=== PATIENT | female | born 2000 | race Two or more races ===

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

== ENCOUNTER 2022-05-03 19:19 | Emergency (ER) | payer OTHER, SELFPAY ==
[2022-05-03 19:35] VITALS: BP 118/76; PULSE 102; RESP 18; TEMP 36.6; O2SAT 100; BMI 19.8
--- NOTE | 2022-05-03 19:38 | ED.FEMALEGU ---
HPI - Female Genitourinary General Chief complaint: Urogenital-Female Stated complaint: UTI Time Seen by Provider: 05/03/22 20:12 Source: patient Mode of arrival: ambulatory Limitations: no limitations History of Present Illness HPI Narrative: 22 yo female with history of multiple UTIs in the past presents the ER for evaluation of UTI symptoms that started this morning. She reports burning when she urinates and increased frequency and urgency. She denies any hematuria, flank pain, abdominal pain, nausea, vomiting, fever, chills. She states she has had UTIs in the past and this feels similar. She denies any vaginal discharge. She denies any concern for STIs. No pelvic pain. She is not sure if she is , she is sexually active. MD elicited complaint: UTI Pertinent past history: recurrent UTIs Onset (ago): hour(s) Location of symptoms: suprapubic and urethra Severity: moderate Female Urogenital Radiation: Non-Radiating Quality of pain: burning Consistency: intermittent Vaginal discharge: none Vaginal bleeding: none Urinary symptoms: Dysuria, Urgency and Frequency Relieving factors: none Associated symptoms: denies other symptoms Treatment prior to arrival: none Sexual activity: Yes Possible : unsure if Related Data Previous Rx's Medication Instructions Recorded nitrofurantoin 100 mg PO BID #20 caps 01/29/21 monohydrate/macrocrystals 100 mg capsule (Macrobid) phenazopyridine 200 mg tablet 200 mg PO TID 2 days #6 tabs 01/29/21 (Pyridium) cefuroxime axetil 250 mg tablet 250 mg PO BID 7 days #14 tabs 03/15/21 nitrofurantoin 100 mg PO Q12H 5 days #10 caps 05/03/22 monohydrate/macrocrystals 100 mg capsule (Macrobid) phenazopyridine 100 mg tablet 100 mg PO TID PRN pain 6 doses #6 05/03/22 (Pyridium) tabs Allergies Allergy/AdvReac Type Severity Reaction Status Date / Time No Known Allergies Allergy Verified 10/09/21 22:02 Review of Systems Review of Systems: Constitutional: No Fever, No Chills Cardiovascular: No Chest Pain, No SOB Respiratory: No Cough, No Sputum Gastrointestinal: No Nausea, No Vomiting, No Diarrhea, No abdominal Pain Genitourinary: + Dysuria, + Urinary Frequency, No Hematuria Musculoskeletal: No joint pain, No Myalgias Skin: No Skin Lesions, No rash Neuro: No Weakness Heme/Lymph: No Bruising, No Lymphadenopathy Endocrine: No Polyuria, No Polydipsia PMFSH Past Medical History Surgical History Hx of tonsillectomy Social History Social History Alcohol intake: never Advance Directives: No Advance Directives Information Provided: No Physical Exam Vital Signs: Vital Signs: Last Vital Signs Temp 97.9 F 05/03/22 19:35 Pulse 102 H 05/03/22 19:35 Resp 18 05/03/22 19:35 BP 118/76 05/03/22 19:35 Pulse Ox 100 05/03/22 19:35 O2 Del Method 05/03/22 19:35 BMI result Body Mass Index 19.8 Appearance: Alert. Oriented X3. No acute distress. HEENT: normal inspecion Neck: Normal inspection. Respiratory: No respiratory distress. Abdomen: Soft and nontender. +BS x4 Skin: Skin warm and dry. Normal skin color. Normal skin turgor. No rashes. Extremities:normal inspection x4 Neuro: Oriented X 3. Grossly normal, nonfocal steady gait Course Course Course Narrative: 19:38 - 22 yo female presenting with UTI. symptoms started this morning. No fever, chills, N/V/D or abdominal pain. No vaginal discharge. No concern for STI. Will check UA and Upreg. Reevaluation(s) Reevaluation #1: Urinalysis positive for infection. Prior UA and urine cultures were reviewed - history of pansensitive E coli. Has tolerated Macrobid well in the past. Will prescribe Macrobid and Pyridium. Patient counseled on diagnosis and management. Encourage follow-up with her PCP. Stable for discharge home. Medical Decision Making Lab Data Labs: Lab Results 05/03/22 05/03/22 Range/Units 19:45 19:45 Urine Color Yellow Urine Appearance Clear Urine pH 6.5 (5.0-9.0) Ur Specific [place] <= 1.005 (1.005-1.025) Urine Protein Negative (Neg-Trace) mg/dL Urine Glucose (UA) Negative (Negative) mg/dL Urine Ketones Negative (Negative) mg/dL Urine Blood Trace H (Negative) Urine Nitrite Negative (Negative) Ur Leukocyte Esterase Moderate (2+) H (Negative) Urine Test NEGATIVE (NEGATIVE) Discharge Plan Discharge Clinical Impression: Urinary tract infection Patient Disposition: Home, Self-Care Instructions: Urinary Tract Infection in Women (ED) Additional Instructions: Your urine test was positive for infection. It was negative for . Your given 1st dose of antibiotics tonight. Take the prescribed antibiotics 1st thing tomorrow morning. Take the entire course, do not miss any doses. Increase your oral hydration, make sure you are drinking plenty of water. Follow-up with your doctor as needed Prescriptions: New nitrofurantoin monohyd/m-cryst [Macrobid] 100 mg capsule 100 mg PO Q12H 5 Days Qty: 10 0RF Rx Instructions: must administer with a meal/food phenazopyridine [Pyridium] 100 mg tablet 100 mg PO TID PRN (Reason: pain) Qty: 6 0RF No Action nitrofurantoin monohyd/m-cryst [Macrobid] 100 mg capsule 100 mg PO BID Qty: 20 0RF Rx Instructions: must administer with a meal/food phenazopyridine [Pyridium] 200 mg tablet 200 mg PO TID 2 Days Qty: 6 0RF cefuroxime axetil 250 mg tablet 250 mg PO BID 7 Days Qty: 14 0RF
[2022-05-03 19:53] LABS: Appearance Urine Clear; Color Urine Yellow; Glucose Urine UA Negative (Negative); Leukocyte Esterase Urine Moderate (2+) (Negative); Nitrite Urine Negative (Negative); PH 6.5 (5.0-9.0); Specific Gravity - Urine <= 1.005 (1.005-1.025); UMIC TRIGGER UACC YES; Urine Blood Trace (Negative); Urine Ketones Negative (Negative); Urine Protein Negative (Neg-Trace)
[2022-05-03 19:56] LABS: UPreg QC Valid YES; Urine Pregnancy NEGATIVE (NEGATIVE)
[2022-05-03] MEDS: Nitrofurantoin Monohyd/M-Cryst 100 MG CAPSULE PO (20:49)
[2022-05-03] MEDS: Phenazopyridine HCL 100 MG TABLET PO (20:49)
[2022-05-03 21:27] LABS: Bacteria Urine None Seen (None Seen); Hyaline Casts Urine 0-2 /LPF (0-2); RBC Urine 0-2 /HPF (0-2); Squamous Epithelial Cell Urine 0-2 /HPF (0-2); UACC Culture Trigger YES; WBC Urine 21-50 /HPF (0-5)
== END 2022-05-03 20:53 | disposition home or self-care (01) ==
PROVIDERS: Physician Assistant; Emergency Provider Emergency Medicine
DX: N39.0 Urinary tract infection, site not specified (principal); R35.0 Frequency of micturition; R30.0 Dysuria; Z79.899 Other long term (current) drug therapy
CPT/HCPCS: 81001; 81003; 81025; 87086; 87147; 99283

== ENCOUNTER 2023-04-16 05:30 | Emergency (ER) | payer OTHER, SELFPAY ==
[2023-04-16 05:33] VITALS: BP 107/65; PULSE 70; RESP 16; TEMP 36.6; O2SAT 100; BMI 19.5
[2023-04-16 05:54] LABS: UPreg QC Valid YES; Urine Pregnancy NEGATIVE (NEGATIVE)
[2023-04-16 05:55] LABS: Appearance Urine Clear; Color Urine Yellow; Glucose Urine UA Negative (Negative); Leukocyte Esterase Urine Moderate (2+) (Negative); Nitrite Urine Negative (Negative); PH 6.5 (5.0-9.0); Specific Gravity - Urine <= 1.005 (1.005-1.025); UMIC TRIGGER UACC YES; Urine Blood Trace (Negative); Urine Ketones Negative (Negative); Urine Protein Negative (Neg-Trace)
[2023-04-16 06:03] LABS: Bacteria Urine None Seen (None Seen); Hyaline Casts Urine 0-2 /LPF (0-2); RBC Urine 0-2 /HPF (0-2); Squamous Epithelial Cell Urine 0-2 /HPF (0-2); UACC Culture Trigger YES
--- NOTE | 2023-04-16 06:03 | ED_ITS ---
HPI - Female Genitourinary General Chief complaint: Urogenital-Female Stated complaint: UTI Time Seen by Provider: 04/16/23 05:48 Source: patient Mode of arrival: ambulatory History of Present Illness HPI Narrative: 23-year-old female with history of frequent UTIs presents with having dysuria and frequency since yesterday but really picked up overnight and now she is feeling considerable discomfort but denies any vaginal discharge. Related Data Previous Rx's Medication Instructions Recorded nitrofurantoin 100 mg PO BID #20 caps 01/29/21 monohydrate/macrocrystals 100 mg capsule (Macrobid) phenazopyridine 200 mg tablet 200 mg PO TID 2 days #6 tabs 01/29/21 (Pyridium) cefuroxime axetil 250 mg tablet 250 mg PO BID 7 days #14 tabs 03/15/21 nitrofurantoin 100 mg PO Q12H 5 days #10 caps 05/03/22 monohydrate/macrocrystals 100 mg capsule (Macrobid) phenazopyridine 100 mg tablet 100 mg PO TID PRN pain 6 doses #6 05/03/22 (Pyridium) tabs nitrofurantoin 100 mg PO Q12H 5 days #10 caps 04/16/23 monohydrate/macrocrystals 100 mg capsule (Macrobid) phenazopyridine 200 mg tablet 200 mg PO TID PRN pain 6 doses #6 04/16/23 (Pyridium) tabs Allergies Allergy/AdvReac Type Severity Reaction Status Date / Time No Known Allergies Allergy Verified 04/16/23 05:35 Review of Systems Review of Systems: Pertinent positives and negatives as stated in [facility] Past Medical History Source: nursing notes reviewed Surgical History Hx of tonsillectomy Social History Social History Alcohol intake: never Advance Directives: No Advance Directives Information Provided: No Physical Exam Vital Signs: Vital Signs: Last Vital Signs Temp 97.8 F 04/16/23 05:33 Pulse 70 04/16/23 05:33 Resp 16 04/16/23 05:33 BP 107/65 04/16/23 05:33 Pulse Ox 100 04/16/23 05:33 O2 Del Method Room Air 04/16/23 05:33 BMI result Body Mass Index 19.5 VITAL SIGNS: Reviewed. GENERAL: Well developed, well nourished, in no acute distress. HEAD: Normocephalic/atraumatic EYES: PERRLA, EOMI LUNGS: Normal breath sounds. No adventitious sounds or accessory muscle use. SpO2<100> CARDIOVASCULAR: Regular rate and rhythm without noted murmurs ABDOMEN: Soft, non-tender, non-distended with bowel sounds. MUSCULOSKELETAL: No tenderness, deformities, or effusions noted on gross inspection. EXTREMITIES: No cyanosis, clubbing or edema. SKIN: Inspection of the skin reveals no rashes NEUROLOGIC: Alert and oriented x 4. Strength and sensation to light touch were grossly intact x 4. Medical Decision Making Medical Decision Making MDM Narrative: 23-year-old female with history and clinical presentation most consistent with cystitis/urinary tract infection, will rule out and no clinical or historical information to suggest STI. On review of results, urine is negative and urinalysis significant for urinary tract infection. Patient received Pyridium and Macrobid as well as Tylenol here in the emergency room. Differential Diagnosis Differential Diagnoses: The differential diagnosis associated with the presentation includes Please see the discussion above Admission/Observation Consideration of admission/observation: Escalation of care including admission/observation considered Please see the discussion above Lab Data MDM Lab Attestation statement: I reviewed the patient's lab results. Please see the discussion above Labs: Lab Results 04/16/23 04/16/23 Range/Units 05:46 05:47 Urine Color Yellow Urine Appearance Clear Urine pH 6.5 (5.0-9.0) Ur Specific [place] <= 1.005 (1.005-1.025) Urine Protein Negative (Neg-Trace) mg/dL Urine Glucose (UA) Negative (Negative) mg/dL Urine Ketones Negative (Negative) mg/dL Urine Blood Trace H (Negative) Urine Nitrite Negative (Negative) Ur Leukocyte Esterase Moderate (2+) H (Negative) Urine RBC 0-2 (0-2) /HPF Urine WBC 11-20 H (0-5) /HPF Ur Squamous Epith Cells 0-2 (0-2) /HPF Urine Bacteria None Seen (None Seen) Hyaline Casts 0-2 (0-2) /LPF Urine Test NEGATIVE (NEGATIVE) External Record Review External record reviewed: Outpatient record and Prior outpatient labs Discharge Plan Discharge Clinical Impression: Urinary tract infection Patient Disposition: Home, Self-Care Instructions: Urinary Tract Infection in Women (ED) Additional Instructions: 1. Please complete the entire course of antibiotics as prescribed. Return to the ER for any worsening symptoms. Prescriptions: New nitrofurantoin monohyd/m-cryst [Macrobid] 100 mg capsule 100 mg PO Q12H 5 Days Qty: 10 0RF Rx Instructions: must administer with a meal/food phenazopyridine [Pyridium] 200 mg tablet 200 mg PO TID PRN (Reason: pain) Qty: 6 0RF No Action nitrofurantoin monohyd/m-cryst [Macrobid] 100 mg capsule 100 mg PO BID Qty: 20 0RF Rx Instructions: must administer with a meal/food phenazopyridine [Pyridium] 200 mg tablet 200 mg PO TID 2 Days Qty: 6 0RF nitrofurantoin monohyd/m-cryst [Macrobid] 100 mg capsule 100 mg PO Q12H 5 Days Qty: 10 0RF Rx Instructions: must administer with a meal/food phenazopyridine [Pyridium] 100 mg tablet 100 mg PO TID PRN (Reason: pain) Qty: 6 0RF cefuroxime axetil 250 mg tablet 250 mg PO BID 7 Days Qty: 14 0RF
[2023-04-16] MEDS: Phenazopyridine HCL 200 MG TABLET PO (06:09)
[2023-04-16] MEDS: Acetaminophen 325 MG TABLET 975 MG PO (06:09)
[2023-04-16] MEDS: Nitrofurantoin Monohyd/M-Cryst 100 MG CAPSULE PO (06:09)
== END 2023-04-16 06:11 | disposition home or self-care (01) ==
PROVIDERS: Emergency Provider Student in an Organized Health Care Education/Training Program
DX: N39.0 Urinary tract infection, site not specified (principal)
CPT/HCPCS: 81001; 81025; 87086; 99283

== ENCOUNTER 2024-02-26 04:35 | Emergency (ER) | payer SELFPAY ==
[2024-02-26 04:36] VITALS: BP 123/76; PULSE 69; RESP 16; TEMP 36.6; O2SAT 100; BMI 20.9
[2024-02-26 04:53] LABS: Appearance Urine Clear; Color Urine Yellow; Glucose Urine UA Negative (Negative); Leukocyte Esterase Urine Moderate (2+) (Negative); Nitrite Urine Negative (Negative); UMIC TRIGGER UACC YES; Urine Blood Trace (Negative); Urine Ketones Negative (Negative); Urine Protein Negative (Neg-Trace)
[2024-02-26 04:58] LABS: Bacteria Urine None Seen (None Seen); Hyaline Casts Urine 0-2 /LPF (0-2); RBC Urine 0-2 /HPF (0-2); Squamous Epithelial Cell Urine 0-2 /HPF (0-2); UACC Culture Trigger YES; WBC Urine >50 /HPF (0-5)
[2024-02-26 06:16] VITALS: BP 108/66; PULSE 67; RESP 16; TEMP 36.7; O2SAT 100
[2024-02-26 06:45] VITALS: BP 108/66; PULSE 67; RESP 16; TEMP 36.7; O2SAT 100
--- NOTE | 2024-02-26 06:50 | ED.FEMALEGU ---
HPI - Female Genitourinary General Chief complaint: Urogenital-Female Stated complaint: UTI? Time Seen by Provider: 02/26/24 06:31 Source: patient Mode of arrival: ambulatory Limitations: no limitations History of Present Illness ED Provider: Liudmila Gaston PA-C HPI Narrative: 24-year-old female with history recurrent UTIs presents to the ER for evaluation of painful urination and urgency and frequency that started yesterday. Patient reports the symptoms got acutely worse overnight prompting ER evaluation this morning. She reports having multiple UTIs in the past and this feels similar. She denies any vaginal bleeding or discharge. Her last menstrual period was 5 days ago. She denies any blood in her urine, back pain, abdominal pain, nausea, vomiting, diarrhea. No fever or chills. MD elicited complaint: dysuria and UTI Pertinent past history: recurrent UTIs Onset (ago): day(s) Location of symptoms: suprapubic and urethra Severity: moderate Consistency: intermittent Vaginal discharge: none Vaginal bleeding: none Urinary symptoms: Dysuria, Urgency and Frequency Exacerbating factors: urination Relieving factors: none Associated symptoms: denies other symptoms Treatment prior to arrival: none Patient : No Date of Last Menstrual Period: 02/22/24 Related Data Previous Rx's ?Medication ?Instructions ?Recorded nitrofurantoin 100 mg PO BID #20 caps 01/29/21 monohydrate/macrocrystals 100 mg capsule (Macrobid) phenazopyridine 200 mg tablet 200 mg PO TID 2 days #6 tabs 01/29/21 (Pyridium) cefuroxime axetil 250 mg tablet 250 mg PO BID 7 days #14 tabs 03/15/21 nitrofurantoin 100 mg PO Q12H 5 days #10 caps 05/03/22 monohydrate/macrocrystals 100 mg capsule (Macrobid) phenazopyridine 100 mg tablet 100 mg PO TID PRN pain 6 doses #6 05/03/22 (Pyridium) tabs nitrofurantoin 100 mg PO Q12H 5 days #10 caps 04/16/23 monohydrate/macrocrystals 100 mg capsule (Macrobid) phenazopyridine 200 mg tablet 200 mg PO TID PRN pain 6 doses #6 04/16/23 (Pyridium) tabs nitrofurantoin 100 mg PO Q12H 5 days #10 caps 10/22/24 monohydrate/macrocrystals 100 mg capsule (Macrobid) Allergies Allergy/AdvReac Type Severity Reaction Status Date / Time No Known Allergies Allergy Verified 02/26/24 04:38 Review of Systems Review of Systems: Yes all other systems are reviewed and are negative [facility] Past Medical History Surgical History Hx of tonsillectomy Date of Last Menstrual Period: 02/22/24 Social History Social History Alcohol intake: never Advance Directives: No Advance Directives Information Provided: No Do you have a plan to hurt others: No Plan Physical Exam Vital Signs: Vital Signs: Last Vital Signs Temp 98.0 F 02/26/24 06:45 Pulse 67 02/26/24 06:45 Resp 16 02/26/24 06:45 BP 108/66 02/26/24 06:45 Pulse Ox 100 02/26/24 06:45 O2 Del Method Room Air 02/26/24 06:45 BMI result Body Mass Index 20.9 Appearance: Alert. Oriented X3. No acute distress. Head: normocephalic, atraumatic. Eyes: Pupils equal, round and reactive to light. ENT: Pharynx normal. No tonsillar swelling or exudate. Neck: Normal inspection. Neck supple. CVS: Normal heart rate and rhythm. Pulses normal. Respiratory: No respiratory distress. Breath sounds normal. Abdomen: Soft and nontender. +BS x4. pelvic deferred Skin: Skin warm and dry. Normal skin color. Normal skin turgor. No rashes. Extremities: No lower extremity edema. No joint swelling. Neuro/psych: Oriented X 3. Grossly normal, nonfocal. CN II-XII intact. Normal speech and cognition. Medical Decision Making Medical Decision Making MDM Narrative: 24 yo female with history of UTIs presents to the ER for evaluation of dysuria, urgency and frequency that started yesterday. Feels similar to a prior UTIs. Vital signs are stable. No systemic signs of infection. Her urinalysis today is positive for infection, negative for . Will treat with Macrobid for simple UTI. Stable for discharge home Differential Diagnosis Differential Diagnoses: The differential diagnosis associated with the presentation includes UTI, pyelonephritis, vaginitis, STI, gastroenteritis Lab Data MDM Lab Attestation statement: I reviewed the patient's lab results. Positive urinalysis Labs: Lab Results 02/26/24 Range/Units 04:45 Urine Color Yellow Urine Appearance Clear Urine pH 6.0 (5.0-9.0) Ur Specific [place] 1.010 (1.005-1.025) Urine Protein Negative (Neg-Trace) mg/dL Urine Glucose (UA) Negative (Negative) mg/dL Urine Ketones Negative (Negative) mg/dL Urine Blood Trace H (Negative) Urine Nitrite Negative (Negative) Ur Leukocyte Esterase Moderate (2+) H (Negative) Urine RBC 0-2 (0-2) /HPF Urine WBC >50 H (0-5) /HPF Ur Squamous Epith Cells 0-2 (0-2) /HPF Urine Bacteria None Seen (None Seen) Hyaline Casts 0-2 (0-2) /LPF External Record Review External record reviewed: Outpatient record and Prior outpatient labs Prescription Management I considered prescription management with: Pain Medication and Antibiotic Chronic Conditions Patient?s care impacted by: Other (Recurrent UTI) Critical Care Time Critical Care Time Critical Care Time: No Discharge Plan Discharge Clinical Impression: Urinary tract infection Patient Disposition: Home, Self-Care Instructions: Urinary Tract Infection in Women (DC) Additional Instructions: you have a urinary tract infection drink plenty of fluids Take the prescribed antibiotics as directed, complete the entire course and do not miss any doses If you develop new or worsening symptoms call 911 or come back to the ER for further evaluation. Prescriptions: New nitrofurantoin monohyd/m-cryst [Macrobid] 100 mg capsule 100 mg PO Q12H 5 Days Qty: 10 0RF Rx Instructions: must administer with a meal/food No Action nitrofurantoin monohyd/m-cryst [Macrobid] 100 mg capsule 100 mg PO BID Qty: 20 0RF Rx Instructions: must administer with a meal/food phenazopyridine [Pyridium] 200 mg tablet 200 mg PO TID 2 Days Qty: 6 0RF nitrofurantoin monohyd/m-cryst [Macrobid] 100 mg capsule 100 mg PO Q12H 5 Days Qty: 10 0RF Rx Instructions: must administer with a meal/food phenazopyridine [Pyridium] 100 mg tablet 100 mg PO TID PRN (Reason: pain) Qty: 6 0RF cefuroxime axetil 250 mg tablet 250 mg PO BID 7 Days Qty: 14 0RF nitrofurantoin monohyd/m-cryst [Macrobid] 100 mg capsule 100 mg PO Q12H 5 Days Qty: 10 0RF Rx Instructions: must administer with a meal/food phenazopyridine [Pyridium] 200 mg tablet 200 mg PO TID PRN (Reason: pain) Qty: 6 0RF Stand Alone Forms: Work/School Release Interventions: ED Discharge Assessment Last Done: 02/26/24 06:45 Discharge Date/Time: 02/26/24 06:49 Print Language: Ukrainian
== END 2024-02-26 06:49 | disposition home or self-care (01) ==
PROVIDERS: Emergency Provider Internal Medicine
DX: N39.0 Urinary tract infection, site not specified (principal); R30.0 Dysuria; R35.0 Frequency of micturition; Z79.899 Other long term (current) drug therapy
CPT/HCPCS: 81001; 87086; 99283